=== PATIENT | male | born 1980 ===

== ENCOUNTER 2016-05-30 08:32 | Emergency (ER) | payer SELFPAY | END 2016-05-30 08:43 | LOC: ER 08:32 | DX: S61.219A Laceration without foreign body of unspecified finger without damage to nail, initial encounter (principal); X58.XXXA Exposure to other specified factors, initial encounter; Y93.89 Activity, other specified; Y92.89 Other specified places as the place of occurrence of the external cause; Y99.8 Other external cause status ==